=== PATIENT | female | born 1955 | race American Indian/Alaskan Native ===

== ENCOUNTER 2017-02-18 15:36 | Outpatient (CLI) | payer MEDICAID ==
--- NOTE | 2017-02-19 12:52 | PET Report ---
PET/CT:02/18/17 15:36:00 CLINICAL: Breast cancer restaging. RADIOPHARMACEUTICAL: 15.09mCi F18-FDG. COMPARISON: 10/08/16 PET/CT TECHNIQUE- Following intravenous injection of F-18 FDG and an approximately 60 minute uptake period, CT and PET images from the mid skull to the upper thighs were acquired with the patient in the fasted state. No contrast was administered. The CT protocol used for this PET CT study is designed for attenuation correction and anatomic localization of PET abnormalities. This vp securities CT is not desired to produce and cannot replace, [id number] diagnostic CT scans with specific imaging protocols for different body parts and indications. Plasma glucose at the time of this test: 89g/dl. The standardized uptake values (SUV) are normalized to patient body weight and indicate the highest activity concentration (SUV max) in a given disease site. FINDINGS: Brain--Physiologic FDG uptake in the visualized regions of the brain. Neck--Physiologic FDG uptake . Chest--Physiologic FDG uptake in mediastinal blood pool and myocardium. Lungs--No abnormal uptake. Stable tiny bilateral subcentimeter noncalcified right upper lobe and left lower lobe non-FDG avid lung nodules. No other lung nodule or mass. Pleura/pericardium--No abnormal uptake. Thoracic nodes--No abnormal uptake. Hepatobiliary--No abnormal uptake. Stable nodular liver consistent with either cirrhosis or pseudocirrhosis. Liver background SUV mean, as a reference for comparing FDG studies, is 3.2 compared to 3.3 on the last exam. No liver mass. Spleen--No abnormal uptake. Pancreas--No abnormal uptake. Adrenal Glands--No abnormal uptake. Kidneys/Ureters/Bladder--No abnormal uptake. Abdominopelvic Nodes--No abnormal uptake. Bowel/Peritoneum/Mesentery--No abnormal uptake. Physiologic uptake in the transverse colon. Pelvic organs--No abnormal uptake. Bones/Soft Tissues--No abnormal uptake. Other findings: Status post right mastectomy with implant reconstruction and status post left breast augmentation. IMPRESSION- 1. Negative study.2. Stable bilateral tiny noncalcified subcentimeter lung nodules.
== END 2017-02-18 15:37 | disposition home or self-care (01) ==
LOC: PET 15:36
PROVIDERS: ATTEND Internal Medicine Hematology & Oncology
DX: C50.411 Malignant neoplasm of upper-outer quadrant of right female breast (principal); R91.8 Other nonspecific abnormal finding of lung field; Z90.11 Acquired absence of right breast and nipple; Z98.82 Breast implant status
CPT/HCPCS: 78815; 82962; A9552

== ENCOUNTER 2017-04-01 14:27 | Outpatient (CLI) | payer MEDICAID ==
--- NOTE | 2017-04-01 15:12 | Mammography Report ---
BONE DENSITY STUDY: DEFINITIONS: BMD = Bone Mineral Density T-score = BMD related to mean peak bone mass of young adult (mean expressed in Standard Deviation) Z-score = Age matched BMD expressed in SD World Health Organization (WHO) Diagnostic Criteria Normal T-score > -1 SD Osteopenia T-score between -1 and -2.4 SD Osteoporosis T-score -2.5 SD or below FINDINGS: The weighted average BMD of lumbar spine L1-L4 is 0.954 with a T-score of -0.8. The weighted average BMD of hip is 0.934 with a T-score of -0.1. IMPRESSION: The patient's T-score is diagnostic for normal bone density and low relative risk for fracture. NOTE: BMD is not the only risk factor for fracture; also consider factors such as the patient's age, risk of falling, previous osteoporotic fracture, family history of osteoporotic fractures, current smoker, and low body weight. Marie's triangle is a region of interest in femur, predominantly of trabecular bone. It is not a true anatomic site, and [facility] does not recommend its use clinically.
== END 2017-04-01 14:28 | disposition home or self-care (01) ==
LOC: MAMMO 14:27
PROVIDERS: ATTEND Internal Medicine Hematology & Oncology
DX: C50.411 Malignant neoplasm of upper-outer quadrant of right female breast (principal); Z78.0 Asymptomatic menopausal state
CPT/HCPCS: 77080

== ENCOUNTER 2017-07-08 09:13 | Outpatient (CLI) | payer MEDICAID ==
--- NOTE | 2017-07-08 14:28 | Nuclear Medicine Report ---
BONE SCAN: History: Breast cancer After injection of isotope, gamma camera imaging of the bony system was done. There is a normal uptake of isotope throughout the bony structures without areas of significantly increased or decreased uptake. Normal uptake in the urinary system is seen. IMPRESSION: Normal bone scan.
== END 2017-07-08 09:14 | disposition home or self-care (01) ==
LOC: NM 09:13
PROVIDERS: ATTEND Internal Medicine Hematology & Oncology
DX: C50.411 Malignant neoplasm of upper-outer quadrant of right female breast (principal)
CPT/HCPCS: 78306; A9503

== ENCOUNTER 2017-09-30 14:25 | Outpatient (CLI) | payer MEDICAID ==
[2017-09-30 15:17] LABS: Blood Urea Nitrogen 13 mg/dL (7-17)
--- NOTE | 2017-09-30 20:33 | Cat Scan Report ---
FINAL REPORT EXAM: CT CHEST W CON HISTORY: BREAST CA TECHNIQUE: Axial images were performed from the lung apices to the bases following IV contrast administration. Multiplanar reformats are performed on the acquisition scanner. Total exam DLP 2250.83 mGy-cm Comparison: None FINDINGS: There are right upper lobe subpleural patchy ill-defined densities which may be related to radiation and scarring. There is a 4.7 millimeter well-circumscribed noncalcified left lower lobe pulmonary nodule. Lungs are otherwise clear and well expanded. There are bilateral breast implants. There is left breast central dermal thickening. The right implant is peripherally calcified. Aorta has normal course and contour. Pulmonary arteries show normal enhancement, course and caliber without filling defect identified. Heart size is normal. Right hemidiaphragm shows eventration with herniation of the cirrhotic liver into the right lung base. There is also herniation of the colon above the right lobe liver. There is a cyst in the posterior segment right lobe liver. Unremarkable upper abdomen otherwise. There is no mediastinal adenopathy. There are no focal lytic or blastic lesions. 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 Bilateral breast implants. Central left breast dermal thickening. Calcified right implant with more round appearance of the right implant relative to the left may represent capsular contracture. 4.7 millimeter left lower lobe noncalcified pulmonary nodule. Recommend correlation with previous CT chests if there are any. Otherwise, recommend short interval 3 month surveillance imaging as this lesion would be too small to resolve by PET imaging. Cirrhotic liver with eventration right hemidiaphragm and herniation of a portion of the liver and colon into the right chest. No focal lytic or blastic bony lesions.
--- NOTE | 2017-09-30 21:52 | Cat Scan Report ---
FINAL REPORT EXAM: CT ABDOMEN PELVIS W CON HISTORY: BREAST CA TECHNIQUE: Axial images were performed from the lung bases to the pubic symphysis following IV contrast administration. Multiplanar reformats are performed on the acquisition scanner. Comparison: None FINDINGS: 4.7 millimeter well-circumscribed noncalcified left lower lobe pulmonary nodule. Eventration right hemidiaphragm with calcified pleural surface. Two simple appearing cysts in the posterior right lobe. Cirrhotic or nodular configuration of the liver. Hypertrophy left lobe. Normal enhancement and appearance of the spleen, pancreas, bilateral adrenal glands. Bilateral kidneys have normal enhancement. There is a cyst in the right kidney upper pole. Mesenteric vessels and aorta have normal enhancement pattern. Bowel pattern is nonobstructive. Normal appendix right lower quadrant. Uterine calcified fibroid. Pelvic phleboliths. No free air or free fluid. Moderate fecal retention. Delayed phase images demonstrate normal contrast excretion. Lower lumbar facet osteoarthritis. No focal lytic or blastic lesions. IMPRESSION: Cirrhotic liver. Eventrated right hemidiaphragm. Moderate fecal retention. Calcified uterine fibroid. No adenopathy. No bony lesions to suggest metastatic disease. 4.7 millimeter left lower lobe pulmonary nodule as identified in the CT chest report.
== END 2017-09-30 14:26 | disposition home or self-care (01) ==
LOC: CT 14:25
PROVIDERS: ATTEND Internal Medicine Hematology & Oncology
DX: C50.411 Malignant neoplasm of upper-outer quadrant of right female breast (principal); R91.1 Solitary pulmonary nodule; Q79.1 Other congenital malformations of diaphragm; J98.4 Other disorders of lung; N28.1 Cyst of kidney, acquired; D25.9 Leiomyoma of uterus, unspecified; I87.8 Other specified disorders of veins; K59.00 Constipation, unspecified; M47.896 Other spondylosis, lumbar region; K74.60 Unspecified cirrhosis of liver; K76.89 Other specified diseases of liver; K46.9 Unspecified abdominal hernia without obstruction or gangrene; Z98.82 Breast implant status
CPT/HCPCS: 36415; 71260; 74177; 82565; 84520; Q9967

== ENCOUNTER 2020-06-06 15:24 | Outpatient (CLI) | payer MEDICARE | END 2020-06-06 15:25 | disposition home or self-care (01) | LOC: SPVWC 15:24 | PROVIDERS: ATTEND Internal Medicine Hematology & Oncology | DX: Z12.31 Encounter for screening mammogram for malignant neoplasm of breast (principal) ==